=== PATIENT | male | born 1995 | race Caucasian/White ===

== ENCOUNTER → 2016-11-18 | Emergency (ER) | payer BC ==
[~2016-11-18] VITALS: Ht 177.8 cm; Wt 120.2 kg
[~2016-11-18] MED LIST: LIDO:MAALOX 1:1 20 ML SINGLE DOSE PO ONE; RANI150T2 PO; RANI150T6 PO
[2016-11-18 12:11] VITALS: BP 161/115
--- NOTE | 2016-11-18 12:49 | RAD ---
KUB Clinical Indication: Pain since yesterday, history of right-sided abdominal pain for 6 months. Comparison: None. Technique: AP supine views of the abdomen are obtained. Findings: No dilated bowel loops are seen to suggest obstruction. Minimal scattered bowel gas is present. No definite nephrolithiasis is seen. Visualized osseous structures and surrounding soft tissues demonstrate no acute finding. Visualized lung bases appear clear. IMPRESSION: Nonobstructive appearing bowel gas pattern.
--- NOTE | 2016-11-18 13:28 | ED.ADGEN ---
Past History Past Medical History: Asthma Past Surgical History: Tonsillectomy, Other Alcohol Use: None Drug Use: Marijuana Adult General HPI HPI Patient is a 21-year-old male presents emergency department complaining of diffuse abdominal pain. Right is greater than the left. He has had this pain intermittently for months. He does not is been diagnosed with lactose intolerance and a gastritis. Patient denies taking any lactulose but also states that he is not taking anything for his gastritis. He did take a look of magnesia earlier today and has had 3 bowel movements prior to arrival. He denies any fever, chills, nausea, vomiting. Review of Systems Review of Systems Constitutional: Denies fever or chills [] Eyes: Denies change in visual acuity, redness, or eye pain [] HENT: Denies nasal congestion or sore throat [] Respiratory: Denies cough or shortness of breath [] Cardiovascular: No additional information not addressed in HPI [] GI: Denies abdominal pain, nausea, vomiting, bloody stools or diarrhea [] : Denies dysuria or hematuria [] Musculoskeletal: Denies back pain or joint pain [] Integument: Denies rash or skin lesions [] Neurologic: Denies headache, focal weakness or sensory changes [] Endocrine: Denies polyuria or polydipsia [] Current Medications Current Medications Current Medications Medications (Trade) Dose Ordered Sig/Brock Start Time Stop Time Status Last Admin Dose Admin Multi-Ingredient Mouthwash/Gargle (Gi Cocktail) 20 ml 1X ONCE 11/18/16 12:45 11/18/16 12:46 DC 11/18/16 12:32 20 ML Allergies Allergies Allergies Coded Allergies Type Severity Reaction Last Updated Verified Penicillins Allergy Intermediate 02/27/16 Yes amoxicillin Allergy Intermediate 02/27/16 Yes Physical Exam Physical Exam Constitutional: Well developed, well nourished, no acute distress, non-toxic appearance. [] HENT: Normocephalic, atraumatic, bilateral external ears normal, oropharynx moist, no oral exudates, nose normal. [] Eyes: PERRLA, EOMI, conjunctiva normal, no discharge. [] Neck: Normal range of motion, no tenderness, supple, no stridor. [] Cardiovascular:Heart rate regular rhythm, no murmur [] Lungs & Thorax: Bilateral breath sounds clear to auscultation [] Abdomen: Bowel sounds normal, soft, diffuse tenderness to palpation without peritoneal signs, no masses, no pulsatile masses. [] Skin: Warm, dry, no erythema, no rash. [] Back: No tenderness, no CVA tenderness. [] Extremities: No tenderness, no cyanosis, no clubbing, ROM intact, no edema. [] Neurologic: Alert and oriented X 3, normal motor function, normal sensory function, no focal deficits noted. [] Psychologic: Affect normal, judgement normal, mood normal. [] Current Patient Data Vital Signs Vital Signs Date Time Temp Pulse Resp B/P Pulse Ox O2 Delivery O2 Flow Rate FiO2 11/18/16 12:11 98.1 57 22 99 Room Air EKG EKG [] Radiology/Procedures Radiology/Procedures [] Course & Med Decision Making Course & Med Decision Making Pertinent Labs and Imaging studies reviewed. (See chart for details) Reassuring workup. Patient was asked follow-up with his physician. He is also to try PPI in the interim. He will return emergency department sooner for develops new or worsening symptoms. [] Final Impression Final Impression Abdominal pain [] Problems: Dragon Disclaimer Dragon Disclaimer This electronic medical record was generated, in whole or in part, using a voice recognition dictation system. PAVITHRA NIEVES MD Nov 18, 2016 13:27
== END ==
LOC: ER 11:55
DX: R10.84 Generalized abdominal pain (principal); J45.909 Unspecified asthma, uncomplicated; F12.10 Cannabis abuse, uncomplicated; Z88.0 Allergy status to penicillin; Z88.1 Allergy status to other antibiotic agents
CPT/HCPCS: 74000; 99283

== ENCOUNTER → 2017-01-25 | Outpatient (CLI) | payer BC ==
[2016-11-18 12:11] VITALS: BP 161/115
[~2017-01-25] MED LIST changes: -LIDO:MAALOX 1:1 20 ML SINGLE DOSE PO ONE
--- NOTE | 2017-01-25 15:23 | RAD ---
Indication injury to the second toe one week ago while swimming. An AP view of the right foot was obtained as well as a lateral image targeted to the second digit. No bony abnormality is seen
== END | disposition home or self-care (01) ==
LOC: DXRADRC 14:47
PROVIDERS: ATTEND Physician Assistant
DX: M79.674 Pain in right toe(s) (principal); W23.0XXD Caught, crushed, jammed, or pinched between moving objects, subsequent encounter; X58.XXXD Exposure to other specified factors, subsequent encounter
CPT/HCPCS: 73660

== ENCOUNTER → 2019-09-23 | Outpatient (CLI) | payer BC ==
[2016-11-18 12:11] VITALS: BP 161/115
[~2019-09-23] MED LIST changes: +RANI-376 PO; -RANI150T6 PO
--- NOTE | 2019-09-23 16:13 | RAD ---
EXAM: Left ankle, 3 views; left foot, 3 views. HISTORY: Pain. COMPARISON: None. FINDINGS: 3 views of the left foot and ankle are obtained. There is no fracture, dislocation or subluxation. There are suspected small cysts within the medial distal first proximal phalanx. No suspicious osseous lesion is seen. There may be a tiny bone island within the calcaneus. The ankle mortise is intact. No osteochondral lesion is seen. IMPRESSION: No acute osseous finding. Electronically signed by: Lluvia Guerrero MD (09/23/2019 4:10 PM) [facility] [place]
--- NOTE | 2019-09-23 16:13 | RAD ---
EXAM: Left ankle, 3 views; left foot, 3 views. HISTORY: Pain. COMPARISON: None. FINDINGS: 3 views of the left foot and ankle are obtained. There is no fracture, dislocation or subluxation. There are suspected small cysts within the medial distal first proximal phalanx. No suspicious osseous lesion is seen. There may be a tiny bone island within the calcaneus. The ankle mortise is intact. No osteochondral lesion is seen. IMPRESSION: No acute osseous finding. Electronically signed by: Lluvia Guerrero MD (09/23/2019 4:10 PM) [facility] [place]
== END | disposition home or self-care (01) ==
LOC: DXRAD 14:27
PROVIDERS: ATTEND Family Medicine
DX: R22.42 Localized swelling, mass and lump, left lower limb (principal)
CPT/HCPCS: 73610; 73630